=== PATIENT | male | born 1960 | race Caucasian/White ===

== ENCOUNTER → 2024-04-24 | Day surgery (SDC) | payer MEDICARE ==
[~2024-04-24] MED LIST: AMLODIPINE BESY10 MG PO; CENTRUM ADULTS1 EACH PO; DEXMEDETOMIDINE HCL 200 MCG/2 ML VIAL ONE; FISH OIL 1,0001 EAC7; LIDOCAINE HCL 2% LOCAL INJ 5 ML SDV VIAL INJ ONE; LISINOPRIL10 MG PO; MAGNESIUM OXID400 MG PO; METHOCARBAMOL750 MG PO; METOPROLOL SUCC25 MG PO; MOTRIN200 MG PO; OMEPRAZOLE40 MG PO; PROPOFOL IV EMULSION 10 MG/ML 50 ML VIAL IV ONE
[2024-04-24] MEDS: LACTATED RINGER'S 1,000 ML ONE (15:10)
[2024-04-24 15:21] LABS: BASOPHILS % 0.1 % (0.0-1.0); HEMATOCRIT 52.7 % (38.2-49.6); HEMOGLOBIN 18.8 g/dL (14.0-18.0); LYMPHOCYTES # (AUTO) 1.3 (1.0-3.2); LYMPHOCYTES % 11.1 % (18.0-39.1); MEAN CORPUSCULAR HEMOGLOBIN 33.2 pg (28-32); MEAN CORPUSCULAR HGB CONC 35.7 g/dL (31-35); MEAN CORPUSCULAR VOLUME 93.1 fL (81-99); MONOCYTES # (AUTO) 1.2 (0.2-0.8); MONOCYTES % 10.9 % (4.4-11.3); NEUTROPHILS # (AUTO) 8.8 (2.1-6.9); NEUTROPHILS % 77.5 % (38.7-80.0); PLATELET COUNT 288 x10e3/uL (140-360); RED BLOOD COUNT 5.66 x10e6/uL (4.3-5.7); RED CELL DISTRIBUTION WIDTH 12.4 % (11.7-14.4)
[2024-04-24 17:50] VITALS: BP 133/89; PULSE 85; RESP 16; TEMP 97.4; O2SAT 94
== END | disposition home or self-care (01) ==
LOC: OR 14:18
PROVIDERS: ATTEND Internal Medicine Gastroenterology
DX: Z09 Encounter for follow-up examination after completed treatment for conditions other than malignant neoplasm (principal); D12.3 Benign neoplasm of transverse colon; K57.30 Diverticulosis of large intestine without perforation or abscess without bleeding; K64.8 Other hemorrhoids; K29.70 Gastritis, unspecified, without bleeding; K21.9 Gastro-esophageal reflux disease without esophagitis; K44.9 Diaphragmatic hernia without obstruction or gangrene; I10 Essential (primary) hypertension; Z79.1 Long term (current) use of non-steroidal anti-inflammatories (NSAID); Z79.899 Other long term (current) drug therapy; Z68.25 Body mass index [BMI] 25.0-25.9, adult
CPT/HCPCS: 36415; 45385; 85025; 88305; 93005; J2001; J2704; J7121; 45380